=== PATIENT | female | born 1935 | race Caucasian/White ===

== ENCOUNTER → 2023-06-06 13:23 | Outpatient (REF) | payer MEDICARE, BC, SELFPAY ==
[2023-06-06 14:34] LABS: % Basophils 0.8 % (0-2); % Eosinophils 1.8 % (0-6); % Immature Granulocytes 0.2 % (0-0.5); % Lymphocytes 37.2 % (20.5-51.1); % Monocytes 6.7 % (1.7-9.3); % Neutrophils 53.3 % (42.2-75.2); Absolute Eosinophils 0.1 10^3/uL (0-0.7); Absolute Lymphocytes 1.9 10^3/uL (1.2-3.4); Absolute Monocytes 0.3 10^3/uL (0.1-0.6); Absolute Neutrophils 2.7 10^3/uL (1.4-6.5); Hematocrit 41.2 % (37.0-47.0); Hemoglobin 13.6 g/dL (12.0-16.0); Mean Corpuscular Hgb 30.6 pg (27.0-31.0); Mean Corpuscular Volume 92.8 fL (81.0-99.0); Mean Platelet Volume 12.4 fL (7.4-10.4); Nucleated Red Blood Cells % 0 %; Platelet Count 141 10^3/uL (130-400); Red Blood Cell Count 4.44 10^6/uL (4.20-5.40); Red Cell Dist. Width 12.8 % (11.5-14.5); White Blood Cell Count 5.1 10^3/uL (4.8-10.8)
[2023-06-06 14:55] LABS: ALT (SGPT) 18 U/L (0-35); AST (SGOT) 24 U/L (14-36); Albumin 3.7 g/dl (3.5-5.0); Alkaline Phosphatase 65 U/L (38-126); Blood Urea Nitrogen 29 mg/dl (7-17); Calcium 9.3 mg/dl (8.4-10.2); Carbon Dioxide 31 mmol/L (22-30); Chloride 103 mmol/L (98-107); Glucose 94 mg/dl (70-99); HDL Cholesterol 59 mg/dl; LDL Cholesterol, Calculated 119 mg/dl; Potassium 3.9 mmol/L (3.5-5.1); Sodium 140 mmol/L (135-145); Total Bilirubin 0.6 mg/dl (0.2-1.3); Total Cholesterol 211 mg/dl (50-199); Total Protein 6.8 g/dl (6.3-8.2); Triglyceride 166 mg/dl (10-149); Very Low Density Lipoprotein 33 mg/dl (0-30); eGFR 43.54
== END ==
LOC: OLAB 13:23
PROVIDERS: ATTENDING PHYSICIAN Nurse Practitioner
DX: I50.9 Heart failure, unspecified (principal); E78.2 Mixed hyperlipidemia; I35.0 Nonrheumatic aortic (valve) stenosis; I10 Essential (primary) hypertension
CPT/HCPCS: 80053; 80061; 85025

== ENCOUNTER 2024-02-02 17:49 | Emergency (ER) | payer MEDICARE, BC, SELFPAY ==
[2024-02-02 17:56] VITALS: BP 179/75
[2024-02-02 18:13] VITALS: BP 147/55
[2024-02-02 18:26] VITALS: BMI 27.6
[2024-02-02] MEDS: TORADOL 15 MG IV (19:58)
--- NOTE | 2024-02-02 20:03 | ED.GENMED ---
History of Present Illness
General
Chief Complaint: Musculo-Skeletal Complaint
Source: patient and family
Exam Limitations: none
Time Seen by Provider: 02/02/24 18:48
History of Present Illness
History of Present Illness:
89-year-old female complaining of right lower back pain with radiation to the right leg. Started 2 days ago. No trauma. No history of same. No abdominal pain fever. Some mild pain in both anterior thighs. Able to ambulate but with difficulty
Past History
Past History
ED Past Medical History: CHF, Hypercholesterolemia and Other (Deaf, Chronic UTI, Vertigo,)
ED Past Surgical History: Gynecological (Hysterectomy) and Urological (Bladder lift)
Social History
Tobacco: Former smoker
Alcohol: None
Personal:
Living: alone
Employment: Retired
Review of Systems
Review of Systems
All Other Systems: Not applicable
Constitutional: Denies fever or chills
Respiratory: Reports no symptoms
Cardiac: Reports no symptoms
ABD/GI: Reports no symptoms
Phy Exam
Physical Exam
Physical Exam:
GENERAL: Alert and oriented in no apparent distress.
EYE: Orbits normal.
NECK: Supple
CARDIAC: Regular rate and rhythm without any obvious murmurs.
LUNGS: Clear breath sounds,normal
ABDOMEN: Soft, without focal tenderness or distention
NEUROLOGICAL: Alert and oriented , grossly non-focal
SKIN: Warm and dry, no rash or lesion, no discoloration, skin intact.
MUSCULOSKELETAL: No edema,no deformity.Good color. Pain in the lower back and shooting pain to the right leg with straight leg raising. Right paralumbar tenderness on exam. Able to sit up but with difficulty. No spinal tenderness. No swelling
or warmth. No leg swelling. Good distal pulses and color.
PSYCH: Normal and appropriate interaction.
Course
Orders/Labs/Results
Orders:
Orders
02/02/24 19:45
Lumbar Spine, 2 or 3 View [CR Lumbar Spine 2 Or 3 Views] Urgent
Comment:
Reason For Exam: Right low back pain radiation of the right leg
02/02/24 19:47
Ketorolac [Toradol] 15 mg IV NOW STA
02/02/24 19:58
Basic Metabolic Panel Urgent
CRP [C-Reactive Protein] Urgent
Complete Blood Count/With Diff Urgent
ESR [Erythrocyte Sed Rate] Urgent
02/02/24 20:55
Dexamethasone Sod Phosphate [Decadron] 4 mg IV NOW STA
Abnormal Lab Results
02/02/24
19:58
Hct 35.1 L %
(37.0-47.0)
MPV 10.5 H fL
(7.4-10.4)
ESR 29 H mm/hour
(0-20)
BUN 21 H mg/dl
(7-17)
Creatinine 1.1 H mg/dL
(0.6-1.0)
Glucose 106 H mg/dl
(70-99)
02/02/24 19:58
02/02/24 19:58
Vital Signs
Initial and Last Documented VS:
Initial Vital Signs
Temp Pulse Resp BP Pulse Ox
98.3 F 72 16 179/75 98
02/02/24 17:56 02/02/24 17:56 02/02/24 17:56 02/02/24 17:56 02/02/24 17:56
Last Documented Vital Signs
Temp Pulse Resp BP Pulse Ox
98.3 F 69 16 128/49 96
02/02/24 17:56 02/02/24 20:43 02/02/24 20:43 02/02/24 20:43 02/02/24 20:43
MDM/Problems Addressed
Differential Diagnosis Includes:
Most consistent with sciatica. Differential would also include PMR. Doubt infectious issue or acute spinal issue. No bladder issues. No distal numbness tingling or weakness. Workup in progress
*Radiology
Radiology exam reviewed: radiology read reviewed (Degenerative changes)
*Pulse Oximetry
Patient hypoxic: no
*Critical Care Note
Total Time (30-74mins, 75-104mins- exclusive of procedures): Not Applicable
Data Reviewed
Review of Other/Old Records Reveals: Labs and Testing
Update Note
Update Note:
Patient feels much better after Toradol. Ambulated without difficulty. Low suspicion for infectious or acute spinal issue. Stable for discharge to follow-up
ED Attending Note
-
Portions of this chart may have been created with voice recognition software.� Occasional wrong word or��sound alike� substitutions may have occurred due to the inherent limitations of voice recognition software.
Discharge Plan
Departure
Patient Disposition: Home (Routine Discharge)
Date of Disposition: 02/02/24
Time of Disposition: 20:56
Patient with high blood pressure during this ER visit?: Yes
Discharge Problem:
Back pain/sciatica
Instructions: Sciatica (DC), Back Pain, BLOOD PRESSURE
Prescriptions:
New
methylprednisolone [Medrol (Gavin)] 4 mg tablets,dose pack
See Rx Instructions .ROUTE .COMPLEX Qty: 21 0RF
Rx Instructions:
for 6 days
No Action
primidone 50 MG tablet
50 mg PO BID
acetaminophen 325 MG tablet
650 mg PO Q4HPRN PRN (Reason: mild pain)
propranolol 20 MG tablet
20 mg PO BID
atorvastatin 10 MG tablet
10 mg PO QPM Qty: 30 0RF
aspirin 81 MG tablet,chewable
81 mg PO DAILY Qty: 30 0RF
furosemide [Lasix] 20 MG tablet
20 mg PO DAILY Qty: 30 0RF
Rx Instructions:
Take first dose morning of 08/13/18
doxycycline monohydrate 100 mg capsule
100 mg PO BID Qty: 14 0RF
tramadol 50 mg tablet
50 mg PO Q8H PRN (Reason: Pain) Qty: 7 0RF
Referrals:
Rodger Umana CRNP [Family Provider] - Follow up in 2-3 days
Activity Restrictions/Additional Instructions:
Tylenol for pain
Start the prednisone tomorrow follow-up closely with your primary physician
The prednisone was sent to your pharmacy
Return sooner with increased pain abdominal pain numbness tingling weakness fever or any other concerning symptoms
Interventions
Interventions:
*Risk Screen - Suicide Last Done: 02/02/24 17:56
*General Assessment Last Done: 02/02/24 17:56
*Neglect/Abuse Screening Last Done: 02/02/24 17:56
ED- Fall Risk Assessment Last Done: 02/02/24 18:16
*ED COVID-19 Vaccine History Last Done: 02/02/24 18:15
ED-Musculoskeletal Assessment Last Done: 02/02/24 18:22
Discharge Date and Time
Print Language: [id number]
[2024-02-02 20:06] LABS: % Basophils 0.6 % (0-2); % Eosinophils 3.1 % (0-6); % Immature Granulocytes 0.2 % (0-0.5); % Lymphocytes 29.5 % (20.5-51.1); % Monocytes 9.1 % (1.7-9.3); % Neutrophils 57.5 % (42.2-75.2); Absolute Eosinophils 0.2 10^3/uL (0-0.7); Absolute Lymphocytes 1.9 10^3/uL (1.2-3.4); Absolute Monocytes 0.6 10^3/uL (0.1-0.6); Absolute Neutrophils 3.7 10^3/uL (1.4-6.5); Hematocrit 35.1 % (37.0-47.0); Hemoglobin 12.3 g/dL (12.0-16.0); Mean Corpuscular Hgb 28.7 pg (27.0-31.0); Mean Platelet Volume 10.5 fL (7.4-10.4); Nucleated Red Blood Cells % 0 %; Platelet Count 170 10^3/uL (130-400); Red Blood Cell Count 4.28 10^6/uL (4.20-5.40); Red Cell Dist. Width 13.2 % (11.5-14.5); White Blood Cell Count 6.5 10^3/uL (4.8-10.8)
[2024-02-02 20:16] LABS: Erythrocyte Sed Rate 29 mm/hour (0-20)
[2024-02-02 20:26] LABS: Blood Urea Nitrogen 21 mg/dl (7-17); Calcium 9.2 mg/dl (8.4-10.2); Carbon Dioxide 24 mmol/L (22-30); Chloride 103 mmol/L (98-107); Estimated Creatinine Clearance 28 ml/min; Glucose 106 mg/dl (70-99); Potassium 3.5 mmol/L (3.5-5.1); Sodium 140 mmol/L (135-145); eGFR 48.03
[2024-02-02 20:43] VITALS: BP 128/49
[2024-02-02] MEDS: DECADRON 4 MG IV (21:43)
[2024-02-02 21:50] VITALS: BP 130/62
== END 2024-02-02 21:59 | disposition home or self-care (01) ==
LOC: EMR 17:49
PROVIDERS: EMERGENCY PHYSICIAN Emergency Medicine
DX: M54.40 Lumbago with sciatica, unspecified side (principal); R03.0 Elevated blood-pressure reading, without diagnosis of hypertension; Z87.891 Personal history of nicotine dependence
CPT/HCPCS: 99284; 96374; 96375; 72100; 80048; 85025; 85652; 86140

== ENCOUNTER → 2024-06-15 16:36 | Outpatient (REF) | payer MEDICARE, BC, SELFPAY | LOC: HWRAD 16:36 | DX: R06.02 Shortness of breath (principal); R05.3 Chronic cough; Z86.16 Personal history of COVID-19 | CPT/HCPCS: 71046 ==